=== PATIENT | female | born 1995 | race African-American/Black ===

== ENCOUNTER 2024-08-01 15:50 | Emergency (ER) | payer OTHER, MEDICAID ==
[~2024-08-01] VITALS: Ht 157.5 cm; Wt 59.5 kg
[2024-08-01 17:06] VITALS: BP 128/68; PULSE 68; RESP 18; TEMP 98.6; O2SAT 98
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
[2024-08-01] MEDS ORDERED: IBUP1TAB5 PO (18:05)
== END 2024-08-01 18:11 | disposition home or self-care (01) ==
LOC: ER 15:55
DX: S70.02XA Contusion of left hip, initial encounter (principal); S70.12XA Contusion of left thigh, initial encounter; M79.662 Pain in left lower leg; M79.661 Pain in right lower leg; M54.2 Cervicalgia; R10.9 Unspecified abdominal pain; M54.9 Dorsalgia, unspecified; V49.9XXA Car occupant (driver) (passenger) injured in unspecified traffic accident, initial encounter; Y93.89 Activity, other specified; Y92.488 Other paved roadways as the place of occurrence of the external cause; Y99.8 Other external cause status
CPT/HCPCS: 73502